=== PATIENT | male | born 1995 | race Caucasian/White ===

== ENCOUNTER 2018-09-28 17:30 | Outpatient (RCR) | payer OTHER, SELFPAY | END 2018-09-28 17:35 | disposition home or self-care (01) | LOC: PT 17:30 | PROVIDERS: Visit Provider Family Medicine | DX: M54.5 Low back pain (principal) | CPT/HCPCS: 97110; 97163 ==

== ENCOUNTER 2020-01-21 09:07 | Emergency (ER) | payer MEDICAID, SELFPAY ==
[2020-01-21 09:31] VITALS: BP 132/79; PULSE 58; RESP 18; TEMP 36.6; O2SAT 98; BMI 27.6
--- NOTE | 2020-01-21 09:35 | HMH.EDUTC ---
[facility] [place] Disposition Clinical Impression: Encounter for laboratory testing for COVID-19 virus Disposition: Home, Self-Care Condition on Discharge: Good Instructions: DI for Headache, DI for Mouth Lesions, Preventing the Spread of Coronavirus Discharge Instructions Additional Instructions: *Monitor Temp, Over the counter Motrin or Tylenol as directed/as needed Tylenol every 4 hours and Motrin every 6 hours (as long as your family doctor has told you that you can take it) for fever or pain. and straight to ER if unable to lower temp less than 101.0 after medication given *Warm salt water gargles may help to soothe the throat and mouth *Throat Lozenges *Warm fluids like tea with honey may help to soothe the throat *Sleep elevated *Humidifier/Vaporizer *Flonase 2 sprays in each nostril daily but be aware that it may take 2-3 days before you notice improvement *Bromfed may cause drowsiness. Know how it effects you (your child) before driving, caring for small child, or sending your child to school. Not other antihistamines/allergy medications while taking bromfed Your throat swab was sent for culture. Those results are typically sent to your primary care. Be sure to follow up in 2-3 days with your family doctor/primary care physician if no improvement so they can review those result and treat if necessary. If you don?t have a primary care doctor, I recommend you get one but in the mean time, you will have to return to a walk in clinic Follow up IMMEDIATELY for new or worsening symptoms or no Noticeable improvement over the next 48-72 hours. 911 for difficulty breathing or swallowing You was tested for today for COVID19 your test result should be back later this evening or tomorrow, you may call back later this evening to see if your test results are back and the result You was given a handout with instructions for Self Quarantine and Self isolation for while you wait on test results and what to do if they are positive Referrals: Magali Cook [Primary Care Provider] - As needed Forms: Work/School Release Time of Disposition: 09:41 Medical Decision Making - Dillon Inquiry Pt receiving controlled substance: No Dillon was queried for this patient: No Vital Signs: 01/21/20 09:31 01/21/20 09:42 Temperature 97.9 F 97.9 F Temperature Source Oral Pulse Rate 58 L Pulse Rate [Radial] 58 L Respiratory Rate 18 18 Blood Pressure 132/79 Blood Pressure [Right Arm] 132/79 Blood Pressure Mean [Right Arm] 96 Blood Pressure Source [Right Arm] Automatic Cuff Blood Pressure Position [Right Arm] Sitting 02 Sat by Pulse Oximetry 98 Oxygen Delivery Method Room Air [facility] [place] HPI - General Stated complaint: covid test Time Seen by Provider: 01/21/20 09:35 Mode of Arrival: Ambulatory Source of Information: Patient Limitations: No Limitations Description of Symptoms (Recalled from Triage Doc. by RN): body aches, santos, loss of smell, top of mouth raw HEENT Symptoms (Recalled from RN notes): Yes Resp Symptoms (Recalled from RN notes): No Skin Symptoms (Recalled from RN notes): No MS Symptoms (Recalled from RN notes): No Functional Status (Recalled from RN notes): wnl - History of Present Illness Provider Complaint: Patient states that he was around his brother last week State that his brother tested positive for COVID but does not live with him State that over the weekend he started having body aches, chills, loss of taste and noticed that his mouth felt raw on the roof of his mouth - Related Data Allergies Allergy/AdvReac Type Severity Reaction Status Date / Time No Known Allergies Allergy Verified 01/20/18 16:53 - Worker's Comp Is this a Worker's Comp case?: No [facility] History - Hepatitis A Screen Drug use history?: No High risk sexual behaviors?: No History of sexually transmitted infection?: No Currently employed?: No Childcare worker?: No Do you have indoor plumbing?: Yes Do you have electricity?: Yes Attestation
[2020-01-21 09:42] VITALS: BP 132/79; PULSE 58; RESP 18; TEMP 36.6; O2SAT 98
--- NOTE | 2020-01-21 20:38 | PC.NURSE ---
PATIENT NOTIFIED OF POSITIVE COVID RESULTS
== END 2020-01-21 09:47 | disposition home or self-care (01) ==
PROVIDERS: Emergency Provider Nurse Practitioner; PCP Physician Assistant
DX: U07.1 COVID-19 (principal)
CPT/HCPCS: 99201; U0003

== ENCOUNTER 2024-07-22 21:19 | Emergency (ER) | payer SELFPAY ==
[2024-07-22 21:32] VITALS: BP 135/85; PULSE 86; RESP 20; TEMP 36.8; O2SAT 97; BMI 28.8
--- NOTE | 2024-07-22 21:44 | HMH.EDGENADL ---
Discharge Plan Disposition Patient Disposition: Home, Self-Care Chief Complaint: Wound/Laceration Referrals Follow up/Referrals: Magali Cook [Primary Care Provider] - See instructions Activity Restrictions/Add. Instructions Additional Instructions/Restrictions: Stitches will dissolve in 7 to 10 days. Dab with warm soapy water to clean, dab dry. Clinical Impressions Clinical Impression: Facial laceration Instructions Patient Instructions: DI for Laceration Repair Print Language Print Language: Japanese Discharge ED Provider: Jose E Arriaga General Adult HPI General Chief complaint: Wound/Laceration Stated complaint: AO 07/22/24 laceration left lid Time Seen by Provider: 07/22/24 21:23 Mode of Arrival: Ambulatory Source of Information: Patient Description of Symptoms (Recalled from ER Triage Doc. by RN): patient was playing basketball and hit heads with another player and has a laceration to his left eyebrow. History of Present Illness HPI narrative: Please note that above description of symptoms, in this electronic medical record under categorization of recalled from ER triage doctor by RN are reflective of an initial nursing assessment, however, is not reflective of my full history and physical exam that was personally taken and clarified. Consequentially, this preceding description of symptoms, which may include the patient's categorized chief complaint in the EMR, do not reflect my personal clinical impression, and the ultimate description of history of present illness and patient stated complaints should be deferred to this section of the note. Unless stated otherwise or congruent with this section of the note, additional signs, symptoms, or incongruence should be interpreted as inaccurate with my clinical impression. Related Data Allergies Allergy/AdvReac Type Severity Reaction Status Date / Time No Known Allergies Allergy Verified 01/20/18 16:53 [facility] Disclaimer: The information contained in this section may have been updated after the patient was seen, as this information can be updated by other users. Social History Smoking Status: Never smoker alcohol intake: never current occupational status: other Travel in the last 8 weeks?: None Have you lived/traveled outside [place] in past 30 days?: No Contact w/someone who lives/traveled outside [place] past 30 days?: No Exposure to someone with infectious disease in past 14 days?: No Do you have a fever (greater than 100.4 F or 38 C)?: No Have you tested positive for COVID-19?: No Exposed to someone with COVID-19 in past 14 days?: No Do you have a sore throat?: No Do you have a cough?: No Do you have any weakness?: No Do you have any diarrhea?: No Are you experiencing any unusual bleeding?: No Do you have any muscle aches/pain?: No Do you have any abdominal pain?: No Are you experiencing loss of taste or smell?: No ROS Obtained: Yes All systems reviewed & no additional complaints except as documented Physical Exam General General appearance: alert Head Head exam: normocephalic and other (3 cm laceration overlying the left eyebrow) Eye Eye exam: Present normal appearance, PERRL and EOMI Neck Neck exam: Present normal inspection, full ROM and trachea midline Respiratory Respiratory exam: Absent respiratory distress, wheezes, stridor, accessory muscle use or prolonged expiratory phase Cardiovascular Cardiovascular exam: Present other (Pulses equal symmetric in upper and lower extremities) Abdominal Exam Abdominal exam: Present soft; Absent distention, tenderness or pulsatile mass Extremities Exam Extremities exam: Absent edema Neurological Exam Neurological exam: Present alert, oriented X3 and CN II-XII intact; Absent motor sensory deficit Skin Skin exam: Present warm and dry; Absent diaphoresis or erythema Medical Decision Making Medical Records Medical records reviewed: Yes I reviewed the patient's medical records. Screening: Per USPSTF and CDC recommendations, given the prevalence of disease in our region, it is our hospital?s policy to screen for HIV and viral Hepatitis for all patients aged 18 and over and those with ongoing risk factors. Dillon Inquiry Pt receiving controlled substance: No Dillon was queried for this patient: No Vital Signs: 07/22/24 21:32 Temperature 98.2 F Temperature Source Oral Pulse Rate [Left] 86 Respiratory Rate 20 Blood Pressure [Right Arm] 135/85 Blood Pressure Mean [Right Arm] 101 Blood Pressure Source [Right Arm] Automatic Cuff Blood Pressure Position [Right Arm] Sitting 02 Sat by Pulse Oximetry 97 Oxygen Delivery Method Room Air Medical Decision Narrative: 29-year-old male presenting with facial laceration. He was playing basketball with another patient who was just here prior and they hit [id number]. No loss of consciousness, patient has laceration overlying his left eyebrow. Came in for further evaluation. Vision is intact and normal, patient has no other acute complaints. History obtained with patient. On arrival, very clinically well. 3 cm laceration overlying his left eyebrow. No evidence of eye involvement. No tenderness about the orbital rim. EOMs intact and full. Laceration was numbed with 1% lidocaine 5 mL, irrigated, closed with four 5.0 Vicryl sutures in simple interrupted fashion. Discharged in hemodynamically stable condition. Surface Supply Breathing Apparatus disclaimer Much of this encounter note is an electronic insurance claim auditor spoken language to printed text. Electronic insurance claim auditor of the spoken language may permit errors. Although I have reviewed the note, some errors may still exist. Procedures Laceration Laceration 1: Site: face Side (If applicable): left Size (cm): 3 Description: linear Depth: involves subcutaneous layer Local Anesthetic: lidocaine 1% Amount of anesthesia used (mL): 5 Pre-repair: wound explored Skin layer closed with: vicryl Size (cm): 5-0 Number of sutures: 4 Technique: simple, interrupted Critical Care Critical Care Time Critical Care Time: No
[2024-07-22 21:47] VITALS: BP 134/82; PULSE 86; RESP 20; TEMP 36.8; O2SAT 100
== END 2024-07-22 21:48 | disposition home or self-care (01) ==
PROVIDERS: Emergency Provider Emergency Medicine; PCP Physician Assistant
DX: S01.81XA Laceration without foreign body of other part of head, initial encounter (principal); W50.0XXA Accidental hit or strike by another person, initial encounter; Y93.67 Activity, basketball
CPT/HCPCS: 12002; 99283